=== PATIENT | male | born 1955 | race Caucasian/White ===

== ENCOUNTER → 2016-12-21 | Outpatient (CLI) | payer OTHER ==
[~2016-12-21] VITALS: Ht 172.7 cm; Wt 105.0 kg
[~2016-12-21] MED LIST: AMLO5TAB2 PO; ASPI-1115 PO; CLOP75TA PO; IRON1CAP PO; LUTEIN PO; METF850T2 PO; PANT40TA27; PRAV40TA3 PO; REGADENOSON 0.4mg/5ml INJECTION IV ONE; RIVA15TA PO; SALINE FLUSH 10ml SYRINGE ONE; SOTA80TA PO; SUCR1TAB PO; WARF7.5T4 PO; ZEAXANTHIN PO
--- NOTE | 2016-12-21 14:55 | ESTF ---
PROCEDURE Pharmacological stress nuclear scan. DATE REFERRING PHYSICIAN Dr. Terrell Brannon II INDICATION Shortness of breath, coronary artery disease with prior stent, diabetes mellitus and multiple risk factors. . PROCEDURE DESCRIPTION The patient underwent injection of technetium-99m Myoview dose of 13 mCi at rest. He was unable to exercise on treadmill due to "bad knees." He underwent injection of Lexiscan dose of 0.4 mg over 10-20 seconds followed by technetium-99m Myoview dose of 32.6 mCi. Stress and rest perfusion images were obtained per protocol. Blood pressure 143/94. Pulse rate 70 bpm. Blood pressure modestly dropped to 131/78. Heart rate went up to 76-79 bpm, which is about 50% of age-predicted maximum heart rate. Rest EKG: There was no symptom or complaints reported. Rest EKG showed sinus rhythm/atrial-paced rhythm, ventricular-paced rhythm. Subsequently, during the stress test, the patient continued to be predominantly atrial paced. There was a nonspecific T-wave abnormality/mild inversion in the inferior lead. There was no diagnostic ST elevation or depression. Occasional PVCs were noted during recovery. Stress and rest perfusion images were reviewed. There was an area of moderately reduced uptake involving the inferior, inferoseptal and inferolateral wall. The area involved overall is relatively large. It does show reperfusion on rest images suggestive of a large area of moderate reversible ischemia. There was a processing artifact involving the anteroseptum. I don't believe that there is a true perfusion defect there. The uptake in the anterior and anterolateral wall appears good. Rotatogram did not show any abnormal extracardiac uptake. Gated images show normal wall motion, normal contractility and normal LV ejection fraction on both sets of images, 55% post stress and 63% on rest images. IMPRESSION: Pharmacological stress nuclear scan clinically negative, electrically nondiagnostic and scintigraphically suggestive of moderate reversible ischemia in the inferior, inferoseptal and inferolateral wall, with normal LV ejection fraction on gated images. DISCUSSION AND PLAN Will review results with the patient regarding further management. FELICITASD
== END ==
LOC: IMA 08:34
PROVIDERS: ATTEND Internal Medicine Cardiovascular Disease
DX: R94.39 Abnormal result of other cardiovascular function study (principal); R26.2 Difficulty in walking, not elsewhere classified; I49.3 Ventricular premature depolarization; I25.10 Atherosclerotic heart disease of native coronary artery without angina pectoris; I48.91 Unspecified atrial fibrillation; R06.02 Shortness of breath
CPT/HCPCS: 78452; 93017; A9502; J2785